=== PATIENT | male | born 1955 | race Caucasian/White ===

== ENCOUNTER → 2018-06-06 | Outpatient (CLI) | payer BC ==
--- NOTE | 2018-06-06 10:54 | EST ---
EXERCISE STRESS DATE OF SERVICE: 06/06/2018 AGE: 62 SEX: Male HT: 5'9" WT: 208 pounds PROTOCOL: CARDIOLITE OLGA STAGE: III DURATION OF EXERCISE: 8 minutes HEART RATE REST: 91 BLOOD PRESSURE REST: 147/103 MAXIMUM HEART RATE ACHIEVED: 139 MAXIMUM BLOOD PRESSURE: 178/91 85% MPHR: 136 100% MPHR: 160 METS: 9 INDICATIONS: Hypertension. CLINICAL INFORMATION: Baseline EKG shows sinus rhythm with right bundle branch block. Patient exercised on Olga protocol for a total of 8 minutes achieving 9 METs, 87% of predicted maximal heart rate without chest pain or diagnostic ST-segment depression. CONCLUSIONS: 1. Good exercise tolerance. 2. Negative stress test by EKG criteria. 3. Cardiolite portion of the stress test will be reported separately. MMODL / IJN: [id number] /
--- NOTE | 2018-06-06 11:52 | NM ---
EXAMINATION TYPE: NM stress cardiolite complete DATE OF EXAM: 06/06/2018 COMPARISON: NONE HISTORY: Precordial chest pain and abnormal EKG. TECHNIQUE: After the intravenous administration of 10.08 mCi Tc 99m Sestamibi - Rest images obtained 45 minutes post injection. The patient exercised using a OLGA protocol and 1 minute prior to peak exercise was injected with 23.7 mCi Tc 99m Sestamibi - Stress images obtained 15 minutes post inject ion. FINDINGS: Targeted heart rate was achieved during performance of the study. Review of stress and rest SPECT brie ges demonstrates no distinct perfusion abnormality. Gated analysis shows normal wall motion with an estimated left ventricular ejection fraction of 47 %. IMPRESSION: No scintigraphic evidence for reversible ischemia
== END | disposition home or self-care (01) ==
LOC: RADNMMAIN 07:56
PROVIDERS: ATTEND Family Medicine
DX: I51.7 Cardiomegaly (principal); I10 Essential (primary) hypertension
CPT/HCPCS: 93017; 78452; A9500

== ENCOUNTER 2018-06-25 09:38 | Observation (INO) | payer BC ==
[2018-06-25] MEDS ORDERED: PANTOPRAZOLE 40 MG/10 ML VIAL IVP STA (10:06)
[2018-06-25] MEDS ORDERED: SODIUM CHLORIDE 0.9% 1,000 ML IV STA (10:06)
--- NOTE | 2018-06-25 10:12 | ED ---
General Adult HPI - General Chief complaint: GI Bleed Stated complaint: GI bleed Time Seen by Provider: 06/25/18 09:58 Source: patient, RN notes reviewed Mode of arrival: ambulatory Limitations: no limitations - History of Present Illness Initial comments: Patient is a pleasant 62-year-old male presenting to the emergency department with concerns for gastrointestinal bleeding. Patient states he had an episode of emesis around 3 in the morning. Patient states this was less than 1 cup of bright red blood. Following this this morning patient has had now 4 episodes of black tarry stool that has been running. Patient has a mild unsettled feeling of his stomach. No pain. No fevers. No history of similar symptoms previously. Patient is not on any blood thinners. - Related Data Home Medications Medication Instructions Recorded Confirmed Losartan/Hydrochlorothiazide 1 each PO DAILY 06/25/18 06/25/18 [Losartan-Hctz 100-25 mg Tab] Naproxen Sodium [Aleve] 440 mg PO Q12HR PRN 06/25/18 06/25/18 amLODIPine [Norvasc] 5 mg PO DAILY 06/25/18 06/25/18 Allergies Allergy/AdvReac Type Severity Reaction Status Date / Time No Known Allergies Allergy Verified 06/25/18 10:28 Review of Systems ROS Statement: Those systems with pertinent positive or pertinent negative responses have been documented in the HPI. ROS Other: All systems not noted in ROS Statement are negative. Constitutional: Denies: fever Eyes: Denies: eye pain ENT: Denies: ear pain Respiratory: Denies: cough Cardiovascular: Denies: chest pain Endocrine: Denies: fatigue Gastrointestinal: Reports: hematemesis, melena Genitourinary: Denies: dysuria Musculoskeletal: Denies: back pain Skin: Denies: rash Neurological: Denies: weakness Past Medical History Past Medical History: GERD/Reflux, Hypertension Additional Past Medical History / Comment(s): leukemia History of Any Multi-Drug Resistant Organisms: None Reported Past Surgical History: Appendectomy Past Psychological History: No Psychological Hx Reported Smoking Status: Never smoker Past Alcohol Use History: None Reported Past Drug Use History: None Reported General Exam Limitations: no limitations General appearance: alert, in no apparent distress Head exam: Present: atraumatic Eye exam: Present: normal appearance, PERRL ENT exam: Present: normal oropharynx Neck exam: Present: normal inspection Respiratory exam: Present: normal lung sounds bilaterally Cardiovascular Exam: Present: normal rhythm, tachycardia Expanded Peripheral pulses: 2+: Dorsalis Pedis (R), Dorsalis Pedis (L) GI/Abdominal exam: Present: soft, normal bowel sounds. Absent: distended, tenderness, guarding, rebound, rigid, pulsatile mass Rectal exam: Present: black stool Extremities exam: Present: normal inspection. Absent: pedal edema, calf tenderness Neurological exam: Present: alert Psychiatric exam: Present: normal affect, normal mood Skin exam: Present: normal color Course Vital Signs 06/25/18 06/25/18 06/25/18 09:42 10:01 11:47 Temperature 98.0 F 97.9 F Pulse Rate 104 H 104 H 81 Respiratory 18 18 Rate Blood Pressure 145/88 102/78 107/85 O2 Sat by Pulse 96 96 95 Oximetry EKG Findings - EKG Comments: EKG Findings:: Sinus tachycardia 104. WA 172. QRS 140. QT 388. QTC 510. Left axis. Right bundle-branch block. LVH criteria. No acute ST change. Medical Decision Making - Medical Decision Making Patient reevaluated and updated. Case discussed in detail with Dr. Malin, who will admit his patient. He would like computed tomography scan done secondary to elevation of white blood cell count and consult with gastroenterology. - Lab Data Result diagrams: 06/25/18 10:00 06/25/18 10:00 Lab Results 06/25/18 06/25/18 06/25/18 Range/Units 10:00 10:00 10:00 WBC 15.2 H (3.8-10.6) k/uL RBC 5.19 (4.30-5.90) m/uL Hgb 14.7 (13.0-17.5) gm/dL Hct 44.9 (39.0-53.0) % MCV 86.4 (80.0-100.0) fL MCH 28.4 (25.0-35.0) pg MCHC 32.8 (31.0-37.0) g/dL RDW 13.5 (11.5-15.5) % Plt Count 230 (150-450) k/uL Neutrophils % (Manual) 61 % Lymphocytes % (Manual) 35 % Monocytes % (Manual) 4 % Neutrophils # (Manual) 9.27 H (1.3-7.7) k/uL Lymphocytes # (Manual) 5.32 H (1.0-4.8) k/uL Monocytes # (Manual) 0.61 (0-1.0) k/uL Nucleated RBCs 0 (0-0) /100 WBC RBC Morphology Normal PT 10.7 (9.0-12.0) sec INR 1.1 (<1.2) APTT 24.8 (22.0-30.0) sec Sodium 139 (137-145) mmol/L Potassium 4.1 (3.5-5.1) mmol/L Chloride 104 (98-107) mmol/L Carbon Dioxide 26 (22-30) mmol/L Anion Gap 9 mmol/L BUN 40 H (9-20) mg/dL Creatinine 1.01 (0.66-1.25) mg/dL Est GFR (CKD-EPI)AfAm >90 (>60 ml/min/1.73 sqM) Est GFR (CKD-EPI)NonAf 81 (>60 ml/min/1.73 sqM) Glucose 114 H (74-99) mg/dL Calcium 9.1 (8.4-10.2) mg/dL Total Bilirubin 1.6 H (0.2-1.3) mg/dL AST 26 (17-59) U/L ALT 36 (21-72) U/L Alkaline Phosphatase 70 (38-126) U/L Total Protein 6.7 (6.3-8.2) g/dL Albumin 4.0 (3.5-5.0) g/dL Stool Occult Blood (Negative) 06/25/18 Range/Units 10:00 WBC (3.8-10.6) k/uL RBC (4.30-5.90) m/uL Hgb (13.0-17.5) gm/dL Hct (39.0-53.0) % MCV (80.0-100.0) fL MCH (25.0-35.0) pg MCHC (31.0-37.0) g/dL RDW (11.5-15.5) % Plt Count (150-450) k/uL Neutrophils % (Manual) % Lymphocytes % (Manual) % Monocytes % (Manual) % Neutrophils # (Manual) (1.3-7.7) k/uL Lymphocytes # (Manual) (1.0-4.8) k/uL Monocytes # (Manual) (0-1.0) k/uL Nucleated RBCs (0-0) /100 WBC RBC Morphology PT (9.0-12.0) sec INR (<1.2) APTT (22.0-30.0) sec Sodium (137-145) mmol/L Potassium (3.5-5.1) mmol/L Chloride (98-107) mmol/L Carbon Dioxide (22-30) mmol/L Anion Gap mmol/L BUN (9-20) mg/dL Creatinine (0.66-1.25) mg/dL Est GFR (CKD-EPI)AfAm (>60 ml/min/1.73 sqM) Est GFR (CKD-EPI)NonAf (>60 ml/min/1.73 sqM) Glucose (74-99) mg/dL Calcium (8.4-10.2) mg/dL Total Bilirubin (0.2-1.3) mg/dL AST (17-59) U/L ALT (21-72) U/L Alkaline Phosphatase (38-126) U/L Total Protein (6.3-8.2) g/dL Albumin (3.5-5.0) g/dL Stool Occult Blood Positive (Negative) Disposition Clinical Impression: Gastrointestinal hemorrhage Disposition: ADMITTED IP TO THIS HOSP Is patient prescribed a controlled substance at d/c from ED?: No If Rx opioid, was Start Talking consent form obtained?: No Referrals: Kamaljit Malin MD [Primary Care Provider] - 1-2 days Decision Time: 12:45
[2018-06-25 10:26] LABS: HCT 44.9 % (39.0-53.0); HGB 14.7 gm/dL (13.0-17.5); MCH 28.4 pg (25.0-35.0); MCHC 32.8 g/dL (31.0-37.0); MCV 86.4 fL (80.0-100.0); Mean Platelet Volume 6.7; Platelet Count 230 k/uL (150-450); RBC 5.19 m/uL (4.30-5.90); RDW 13.5 % (11.5-15.5); WBC 15.2 k/uL (3.8-10.6)
[2018-06-25 10:30] LABS: INR 1.1 (<1.2); Partial Thromboplastin Time 24.8 sec (22.0-30.0); Prothrombin Time 10.7 sec (9.0-12.0)
[2018-06-25 10:32] LABS: ALT 36 U/L (21-72); AST 26 U/L (17-59); Alkaline Phosphatase 70 U/L (38-126); Anion Gap 9 mmol/L; Blood Urea Nitrogen 40 mg/dL (9-20); Calcium 9.1 mg/dL (8.4-10.2); Carbon Dioxide 26 mmol/L (22-30); Chloride 104 mmol/L (98-107); Glucose 114 mg/dL (74-99); Potassium 4.1 mmol/L (3.5-5.1); Sodium 139 mmol/L (137-145); Total Bilirubin 1.6 mg/dL (0.2-1.3); Total Protein 6.7 g/dL (6.3-8.2)
[2018-06-25 11:15] LABS: Lymphocytes # (M) 5.32 k/uL (1.0-4.8); Neutrophils # (M) 9.27 k/uL (1.3-7.7); Neutrophils % (M) 61 %
[2018-06-25 11:16] LABS: Monocytes # (M) 0.61 k/uL (0-1.0); Nucleated Red Blood Cells 0 /100 WBC (0-0); Total Cells Counted 100
[2018-06-25] MEDS ORDERED: NALOXONE 0.4 MG/ML 1 ML VIAL IV PRN (12:51)
[2018-06-25] MEDS ORDERED: ACETAMINOPHEN IV (For NPO) 1,000 MG in EMPTY BAG 1 BAG IVPB PRN (13:12)
[2018-06-25] MEDS ORDERED: ONDANSETRON 4 MG/2 ML VIAL IVP PRN (13:12)
--- NOTE | 2018-06-25 14:34 | CT ---
EXAMINATION TYPE: CT abdomen pelvis w con DATE OF EXAM: 06/25/2018 COMPARISON: None HISTORY: Coughing up blood, tarry stools CT DLP: 1824 mGycm Automated exposure control for dose reduction was used. CONTRAST: CT scan of the abdomen pelvis is performed with IV Contrast, patient injected with 100 mL of Isovue 3 00. FINDINGS- LUNG BASES-cardiomegaly with no focal area of consolidation. Motion artifact limits assessment LIVER/GB- No gross abnormality is appreciated. PANCREAS- No gross abnormality is seen. SPLEEN- No gross abnormality is seen. ADRENALS- No gross abnormality is seen. KIDNEYS/BLADDER- no hydronephrosis or nephrolithiasis. Tiny hypodensity within the right kidney is to o small. BOWEL-bowel gas pattern nonspecific. There is a small hiatal hernia. No diagnostic evidence of obstru ction. Colon is decompressed and limited in assessment for mucosal lesion. No evidence of obstruction . No definite surrounding inflammatory changes.. LYMPH NODES- No greater than 1cm abdominal or pelvic lymph nodes areappreciated. OSSEOUS STRUCTURES-hypertrophic change of the spine are seen with facet arthropathy at L4-5 and L5-S1 . Grade 1 anterolisthesis L4 on L5. Sclerosis involving the symphysis.. OTHER- atherosclerotic change of the aorta with no evidence of aneurysm. No free fluid or free air. Disc bulging at L4-L5 appears resulting canal stenosis. Fat-containing bilateral inguinal hernias. IMPRESSION- 1. Small hiatal hernia with mild esophageal wall thickening correlate for esophagitis. 2. Limited assessment: Due to decompression. No obvious inflammatory changes. Questionable eccentric wall thickening along posterior right lateral margin the rectosigmoid junction may be related to inco mplete distention rather than true wall thickening. No inflammatory changes. Correlate with direct vi sualization as clinically warranted
[2018-06-25] MEDS: SODIUM CHLORIDE 0.9% 1,000 ML IV SCH ×2 (17:38→21:00)
[2018-06-25 19:12] LABS: HCT 41.4 % (39.0-53.0); HGB 13.9 gm/dL (13.0-17.5); MCH 28.8 pg (25.0-35.0); MCHC 33.6 g/dL (31.0-37.0); MCV 85.7 fL (80.0-100.0); Mean Platelet Volume 6.8; Platelet Count 212 k/uL (150-450); RBC 4.84 m/uL (4.30-5.90); RDW 13.5 % (11.5-15.5); WBC 12.4 k/uL (3.8-10.6)
[2018-06-25] MEDS: PANTOPRAZOLE 40 MG/10 ML VIAL IVP SCH (21:01)
[2018-06-26 01:01] LABS: Basophils % (A) 0 %; Eosinophils # (A) 0.2 k/uL (0-0.7); Eosinophils % (A) 2 %; HCT 39.1 % (39.0-53.0); HGB 13.2 gm/dL (13.0-17.5); Lymphocytes % (A) 45 %; MCH 29.2 pg (25.0-35.0); MCHC 33.7 g/dL (31.0-37.0); MCV 86.5 fL (80.0-100.0); Mean Platelet Volume 7.4; Monocytes # (A) 0.5 k/uL (0-1.0); Monocytes % (A) 4 %; Neutrophils % (A) 46 %; Platelet Count 200 k/uL (150-450); RBC 4.52 m/uL (4.30-5.90); RDW 13.6 % (11.5-15.5); WBC 10.9 k/uL (3.8-10.6)
[2018-06-26 01:02] LABS: Lymphocytes # (A) 4.9 k/uL (1.0-4.8)
[2018-06-26] MEDS: SODIUM CHLORIDE 0.9% 1,000 ML IV SCH ×3 (05:17→20:16)
[2018-06-26 07:58] LABS: Basophils % (A) 0 %; Eosinophils # (A) 0.2 k/uL (0-0.7); Eosinophils % (A) 2 %; HCT 39.7 % (39.0-53.0); HGB 13.3 gm/dL (13.0-17.5); Lymphocytes # (A) 4.7 k/uL (1.0-4.8); Lymphocytes % (A) 46 %; MCH 29.3 pg (25.0-35.0); MCHC 33.6 g/dL (31.0-37.0); MCV 87.2 fL (80.0-100.0); Mean Platelet Volume 6.7; Monocytes # (A) 0.5 k/uL (0-1.0); Monocytes % (A) 4 %; Neutrophils # (A) 4.8 k/uL (1.3-7.7); Neutrophils % (A) 46 %; Platelet Count 203 k/uL (150-450); RBC 4.55 m/uL (4.30-5.90); RDW 13.7 % (11.5-15.5); WBC 10.4 k/uL (3.8-10.6)
--- NOTE | 2018-06-26 08:42 | P.CONS ---
<Becka Gardner - Last Filed: 06/26/18 08:35> History of Present Illness - Reason for Consult Consult date: 06/26/18 Gi Bleed hematemesis Requesting physician: Kamaljit Malin - History of Present Illness 62-year-old gentleman with a history of GERD hypertension presents with acute hematemesis and melena. Early yesterday morning he was awakened with 2 red- colored emesis followed by several black colored bowel movements. Mild epigastric discomfort reflux type symptoms. No history GI bleed. He takes Aleve on a daily basis for the last 2 months for musculoskeletal discomfort. Does not take maintenance medications for GERD. Occasional [id number] Rolaids. Sometimes he takes one tablet a day sometimes 2 tablets daily. No history of EGD, peptic ulcer disease, or GI bleed. Colonoscopy several years ago to his memory was normal. No aspirin or other antiplatelet medications. No alcohol. Denies chest pain or shortness of breath. Afebrile. Admission hemoglobin 14.7 presently 13.3. White count 15.2 presently 10.4. INR 1.1. Platelet 230. BUN 40. Creatinine 1.0. Stool occult blood positive. CT abdomen and pelvis small hiatal hernia mild esophageal wall thickening correlate for esophagitis. Additionally patient reports over the last few months she's had increased dysphagia with thicker foods being stuck in the mid to lower esophagus however does not report emesis or weight loss with it. Sensation of food being stuck usually passes with water/liquids. Review of Systems Constitutional: Denies fever, chills, sweats, weight gain, or loss. HEENT: Negative for migraines, blurred vision or loss, earaches, drainage, tinnitus, oral mucosal lesions, dysphagia, or odynophagia. Cardiac: Negative for chest pain, arrhythmias, or palpitation. Respiratory: Negative for shortness of breath, hemoptysis, cough, or sputum production. Gastrointestinal: See HPI for pertinent findings. Genitourinary: Negative for hematuria, urgency, frequency, polyuria, dysuria, or penile discharge. Musculoskeletal: Negative for muscle aches, swelling, arthritis, and arthralgias. Neurologic: Negative for stroke or TIA. Endocrine: Negative for thyroid problems. Skin: Negative for rash or itching. Psychiatric: Negative history for depression and anxiety Past Medical History Past Medical History: GERD/Reflux, Hypertension Additional Past Medical History / Comment(s): CLL diagnosed in 2009-being followed by Dr. Jeffery with blood work every 6 months, past bilateral ankle fractures-healed with casting. History of Any Multi-Drug Resistant Organisms: None Reported Past Surgical History: Appendectomy Additional Past Surgical History / Comment(s): Colonoscopy/normal. Past Anesthesia/Blood Transfusion Reactions: No Reported Reaction Smoking Status: Never smoker - Past Family History Father Family Medical History: Diabetes Mellitus, Myocardial Infarction ([place]) Additional Family Medical History / Comment(s): Father at the ageof 77yrs from [place]/diabetes. Mother Family Medical History: No Reported History Additional Family Medical History / Comment(s): Mother is healthy and is 82 yrs old. Medications and Allergies Home Medications Medication Instructions Recorded Confirmed Type Losartan/Hydrochlorothiazide 1 each PO DAILY 06/25/18 06/25/18 History [Losartan-Hctz 100-25 mg Tab] amLODIPine [Norvasc] 5 mg PO DAILY 06/25/18 06/25/18 History Pantoprazole [Protonix] 40 mg PO BID #60 tab 06/27/18 Rx Allergies Allergy/AdvReac Type Severity Reaction Status Date / Time No Known Allergies Allergy Verified 06/25/18 10:28 Physical Exam Vitals: Vital Signs Temp Pulse Pulse Resp BP BP Pulse Ox 06/26/18 06:35 96.0 F L 93 14 111/75 97 06/25/18 23:00 96.4 F L 61 14 116/76 96 06/25/18 14:27 98.1 F 86 16 117/85 95 06/25/18 13:34 98.0 F 88 16 117/76 96 06/25/18 11:47 97.9 F 81 18 107/85 95 06/25/18 10:01 104 H 18 102/78 96 06/25/18 09:42 98.0 F 104 H 18 145/88 96 Intake and Output 06/25/18 06/26/18 06/26/18 22:59 06:59 14:59 Other: # Voids 1 1 Weight 95.254 kg General appearance: The patient is alert, oriented, in no acute distress. HET: Head is normocephalic and atraumatic. Pupils are equal and reactive. Oropharynx is clear without lesions. Neck: Supple without lymphadenopathy. Trachea midline. Heart: S1 S2. Regular rate and rhythm. Lungs: No crackles or wheezes are heard. Abdomen: Soft, mild midepigastric tenderness, nondistended with bowel sounds. No peritoneal signs. No palpable organomegaly or masses. Extremities: Normal skin color and turgor. No cyanosis, rash, ulceration, clubbing, or edema. Radial and pedal pulses are 2/4 bilaterally. Neurological: No focal deficits. Strength and sensation are grossly intact. Results CBC & Chem 7: 06/26/18 07:32 06/25/18 10:00 Labs: Abnormal Lab Results - Last 24 Hours (Table) 06/25/18 06/25/18 06/25/18 Range/Units 10:00 10:00 19:00 WBC 15.2 H 12.4 H (3.8-10.6) k/uL Neutrophils # (Manual) 9.27 H (1.3-7.7) k/uL Lymphocytes # (1.0-4.8) k/uL Lymphocytes # (Manual) 5.32 H (1.0-4.8) k/uL BUN 40 H (9-20) mg/dL Glucose 114 H (74-99) mg/dL Total Bilirubin 1.6 H (0.2-1.3) mg/dL 06/26/18 Range/Units 00:51 WBC 10.9 H (3.8-10.6) k/uL Neutrophils # (Manual) (1.3-7.7) k/uL Lymphocytes # 4.9 H (1.0-4.8) k/uL Lymphocytes # (Manual) (1.0-4.8) k/uL BUN (9-20) mg/dL Glucose (74-99) mg/dL Total Bilirubin (0.2-1.3) mg/dL CT scan - abdomen: report reviewed (Dr. Perez) Assessment and Plan (1) Hematemesis Narrative/Plan: Possible peptic ulcer disease NSAID-induced Status: Acute Code(s): K92.0 - HEMATEMESIS SNOMED Code(s): 0297163 (2) Melena Status: Acute Code(s): K92.1 - MELENA SNOMED Code(s): 3939859 (3) Patient takes NSAID (non-steroid anti-inflammatory drug) Status: Acute Code(s): Z79.1 - USP (CURRENT) USE OF NON-STEROIDAL NON- INFLAM (NSAID) SNOMED Code(s): 893557707 (4) Gastrointestinal hemorrhage Status: Acute Code(s): K92.2 - GASTROINTESTINAL HEMORRHAGE, UNSPECIFIED SNOMED Code(s): 99990264 (5) GERD (gastroesophageal reflux disease) Status: Acute Code(s): K21.9 - GASTRO-ESOPHAGEAL REFLUX DISEASE WITHOUT ESOPHAGITIS SNOMED Code(s): 317407210 (6) Dysphagia Narrative/Plan: Underlying esophageal stricture disease cannot be excluded Status: Acute Code(s): R13.10 - DYSPHAGIA, UNSPECIFIED SNOMED Code(s): 36028036 <Bubba Perez - Last Filed: 07/05/18 10:11> Results CBC & Chem 7: 06/27/18 07:10 06/27/18 07:10 Assessment and Plan Plan: The patient has been seen and evaluated, and the plan of care discussed. I agree with the above recommendations and assessment and plan.
[2018-06-26] MEDS: PANTOPRAZOLE 40 MG/10 ML VIAL IVP SCH ×2 (08:53→20:15)
[2018-06-26] MEDS ORDERED: PANTOPRAZOLE 40 MG/10 ML VIAL IV SCH (09:00)
[2018-06-26 09:29] LABS: ALT 32 U/L (21-72); AST 24 U/L (17-59); Albumin 3.2 g/dL (3.5-5.0); Alkaline Phosphatase 59 U/L (38-126); Anion Gap 5 mmol/L; Blood Urea Nitrogen 27 mg/dL (9-20); Calcium 8.6 mg/dL (8.4-10.2); Carbon Dioxide 28 mmol/L (22-30); Chloride 107 mmol/L (98-107); Glucose 95 mg/dL (74-99); Sodium 140 mmol/L (137-145); Total Bilirubin 1.6 mg/dL (0.2-1.3); Total Protein 5.7 g/dL (6.3-8.2)
--- NOTE | 2018-06-26 10:48 | P.HPIM ---
History of Present Illness H&P Date: 06/26/18 Chief Complaint: hematemesis 62-year-old male who presented to the emergency room with a chief complaint of hematemesis. He reports he had two episodes of hematemesis yesterday followed by a multiple episodes of black, tarry stools. The patient reports a history of gastroesophageal reflux disease. He states the majority of the time his reflux is well controlled and is worsened by acidic foods such as tomatoes. He reports not eating these types of food late in the day has helped his symptoms. He reports he takes Rolaids PRN. The patient reports daily NSAID use with Aleve due to generalized aches and pains. 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 He denies having EGD in the past. He does report a colonoscopy in the past which he reports was normal. The patient also has a history of hypertension. He takes Norvasc and Losartan/HCTZ. The patient reports he was sent for a stress test due to some EKG changes found during an office visit. Stress test was completed 06/06/2018 and was negative. The patient states he does see Dr. Archer every 6 months. He also has a history of CLL in [address] Jeffery every 6 months. He is a non-smoker. He denies alcohol use. Denies illicit drug use. CT abdomen/pelvis revealed a small hiatal hernia with mild esophageal wall thickening: correlate for esophagitis. Laboratory data on admission reveals white count 15.2. Hemoglobin 14.7. Platelet count 230. Sodium 139. Potassium 4.1. BUN 40. Creatinine 1.01. Glucose 114. Total bilirubin 1.6. AST 26. ALT 36. Alkaline phosphatase 70. Stool for occult blood was positive. The patient was admitted to the hospital under the care of Dr. Malin. Consultations were placed to GI. Review of Systems Those systems with pertinent positive or pertinent negative responses have been documented in the HPI Past Medical History Past Medical History: GERD/Reflux, Hypertension Additional Past Medical History / Comment(s): CLL diagnosed in 2009-being followed by Dr. Jeffery with blood work every 6 months, past bilateral ankle fractures-healed with casting. History of Any Multi-Drug Resistant Organisms: None Reported Past Surgical History: Appendectomy Additional Past Surgical History / Comment(s): Colonoscopy/normal. Past Anesthesia/Blood Transfusion Reactions: No Reported Reaction Smoking Status: Never smoker - Past Family History Father Family Medical History: Diabetes Mellitus, Myocardial Infarction ([place]) Additional Family Medical History / Comment(s): Father at the ageof 77yrs from [place]/diabetes. Mother Family Medical History: No Reported History Additional Family Medical History / Comment(s): Mother is healthy and is 82 yrs old. Medications and Allergies Home Medications Medication Instructions Recorded Confirmed Type Losartan/Hydrochlorothiazide 1 each PO DAILY 06/25/18 06/25/18 History [Losartan-Hctz 100-25 mg Tab] Naproxen Sodium [Aleve] 440 mg PO Q12HR PRN 06/25/18 06/25/18 History amLODIPine [Norvasc] 5 mg PO DAILY 06/25/18 06/25/18 History Allergies Allergy/AdvReac Type Severity Reaction Status Date / Time No Known Allergies Allergy Verified 06/25/18 10:28 Physical Exam Vitals: Vital Signs Temp Pulse Pulse Resp BP BP Pulse Ox 06/26/18 06:35 96.0 F L 93 14 111/75 97 06/25/18 23:00 96.4 F L 61 14 116/76 96 06/25/18 14:27 98.1 F 86 16 117/85 95 06/25/18 13:34 98.0 F 88 16 117/76 96 06/25/18 11:47 97.9 F 81 18 107/85 95 Intake and Output 06/25/18 06/26/18 06/26/18 22:59 06:59 14:59 Other: # Voids 1 1 Weight 95.254 kg GENERAL: This is a 62-year-old male in no apparent distress at the time of examination. Pleasant and cooperative. HEENT: Head is atraumatic, normocephalic. Pupils are equal, round, and reactive to light. Sclerae anicteric. Conjunctivae are clear. Mucus membranes of the mouth are moist. Neck is supple. RESPIRATORY: Clear to ausculation. No wheezes, rales, or rhonchi. No use of accessory muscles. Patient maintaining oxygen saturation greater than 92%. No chest wall tenderness is noted on palpation or with deep breathing. CARDIOVASCULAR: Regular rate and rhythm. S1 and S2 noted. No systolic or diastolic murmur auscultated. No JVD noted. No S3 or S4 noted. GASTROINTESTINAL: No distention noted. Abdomen soft and round. Normal active bowel sounds auscultated x 4 quadrants. No pain or tenderness noted upon palpation. INTEGUMENTARY: No cyanosis. No jaundice. No rashes noted. No cellulitis noted. EXTREMITIES: 2+ peripheral pulses. No evidence of peripheral edema. No calf tenderness noted. NEUROLOGIC: Cranial nerves II-XII intact. PSYCHIATRIC: Awake, alert, and oriented X 3. Appropriate affect. Intact judgement and insight. Results CBC & Chem 7: 06/26/18 07:32 06/26/18 07:32 Labs: Abnormal Lab Results - Last 24 Hours (Table) 06/25/18 06/25/18 06/25/18 Range/Units 10:00 10:00 19:00 WBC 15.2 H 12.4 H (3.8-10.6) k/uL Neutrophils # (Manual) 9.27 H (1.3-7.7) k/uL Lymphocytes # (1.0-4.8) k/uL Lymphocytes # (Manual) 5.32 H (1.0-4.8) k/uL BUN 40 H (9-20) mg/dL Glucose 114 H (74-99) mg/dL Total Bilirubin 1.6 H (0.2-1.3) mg/dL Total Protein (6.3-8.2) g/dL Albumin (3.5-5.0) g/dL 06/26/18 06/26/18 Range/Units 00:51 07:32 WBC 10.9 H (3.8-10.6) k/uL Neutrophils # (Manual) (1.3-7.7) k/uL Lymphocytes # 4.9 H (1.0-4.8) k/uL Lymphocytes # (Manual) (1.0-4.8) k/uL BUN 27 H (9-20) mg/dL Glucose (74-99) mg/dL Total Bilirubin 1.6 H (0.2-1.3) mg/dL Total Protein 5.7 L (6.3-8.2) g/dL Albumin 3.2 L (3.5-5.0) g/dL Thrombosis Risk Factor Assmnt - Choose All That Apply Any of the Below Risk Factors Present?: Yes Each Factor Represents 1 point: Age 41-60 years, Obesity (BMI >25) Other Risk Factors: Yes Each Risk Factor Represents 2 Points: Malignancy Other congenital or acquired thrombophilia - If yes, enter type in comment: No Thrombosis Risk Factor Assessment Total Risk Factor Score: 4 Thrombosis Risk Factor Assessment Level: Moderate Risk Assessment and Plan Plan: ASSESSMENT: GI Bleed, present on admission, may be secondary to daily NSAID use Hematemesis and melena, present on admission Gastroesophageal reflux disease Hypertension History of CLL PLAN: GI on consult. Patient to undergo EGD today NPO until after procedure Hold home medications at this time Monitor labs GI prophylaxis: Protonix 40 mg IV BID DVT prophylaxis: SCDs to bilateral LE Monitor vital signs and address as appropriate Discharge planning: Patient to return home when stable Further recommendations pending patient's course Nurse practitioner note has been reviewed by physician. Signing provider agrees with the documented findings, assessment, and plan of care.
[2018-06-26 12:09] LABS: Basophils % (A) 0 %; Eosinophils # (A) 0.2 k/uL (0-0.7); Eosinophils % (A) 2 %; HCT 39.8 % (39.0-53.0); HGB 13.1 gm/dL (13.0-17.5); Lymphocytes # (A) 4.7 k/uL (1.0-4.8); Lymphocytes % (A) 46 %; MCH 28.7 pg (25.0-35.0); Mean Platelet Volume 6.6; Monocytes # (A) 0.4 k/uL (0-1.0); Monocytes % (A) 4 %; Neutrophils # (A) 4.8 k/uL (1.3-7.7); Neutrophils % (A) 46 %; Platelet Count 199 k/uL (150-450); RBC 4.57 m/uL (4.30-5.90); RDW 13.6 % (11.5-15.5); WBC 10.4 k/uL (3.8-10.6)
[2018-06-26] MEDS ORDERED: PROPOFOL 10 MG/ML 20 ML VIAL IV ONE (12:33)
[2018-06-26] MEDS ORDERED: IV FLUID CONTINUATION 400 ML IV ONE (12:34)
--- NOTE | 2018-06-26 18:54 | P.PCN ---
Date of Procedure: 06/26/18 Description of Procedure: BRIEF HISTORY: Patient is a 62-year-old, pleasant, male who presented to the hospital with complaints of hematemesis. The patient has no prior history of peptic ulcer disease however does don't risk factors including the recent use of NSAID medications. PROCEDURE PERFORMED: Esophagogastroduodenoscopy. PREOPERATIVE DIAGNOSIS: Hematemesis. IV sedation per anesthesia. PROCEDURE: After informed consent was obtained, the patient was brought into the endoscopy unit. IV sedation was administered by Anesthesia under continuous monitoring. Initially the Olympus GIF-190 video endoscope was inserted into the mouth. Esophagus intubated without any difficulty. It was gradually advanced into the stomach and duodenum and carefully examined. The bulb and the second part of the duodenum appeared normal. The scope at this time was withdrawn to the stomach, adequately insufflated with air, and upon careful examination, mucosa of the antrum, body, cardia and the fundus appeared grossly normal however areas of scattered gastritis were noted in the body and antrum and biopsies were taken to rule out Helicobacter pylori. The patient also had a small polyp in the body of the stomach which was biopsied. The scope was then withdrawn into the esophagus. The GE junction was located at 35 cm from the incisors. The esophagus appeared normal in the proximal and mid regions however the distal esophagus with marked by a large nonbleeding ulcer with no evidence of high risk stigmata of bleeding. Biopsies were taken from the ulcer. IMPRESSION: 1. Distal esophageal ulcer with no evidence of active GI bleeding status post biopsy. 2. Scattered mild gastritis of the antrum and body which was biopsied for histology. 3. Small polyp in the body of the stomach which was biopsied. 4. Normal duodenum RECOMMENDATIONS: The findings of this examination were discussed with the patient . 1. Protonix 40 mg twice a day. 2. Repeat endoscopy in 6-8 weeks to ensure healing of the esophageal ulcer. 3. Full liquid diet today, okay to advance to a GI soft diet tomorrow. 4. Continue to monitor hemoglobin and hematocrit. 5. Await pathology from biopsies. 6. Follow up with the gastroenterology service in the next 1-2 weeks. 7. Avoid use of all NSAIDs.
[2018-06-27] MEDS: SODIUM CHLORIDE 0.9% 1,000 ML IV SCH (05:00)
[2018-06-27 07:20] VITALS: BP 134/88; PULSE 87; RESP 16; TEMP 97.9
[2018-06-27 07:46] LABS: Basophils % (A) 0 %; Eosinophils # (A) 0.2 k/uL (0-0.7); Eosinophils % (A) 2 %; HCT 37.7 % (39.0-53.0); HGB 12.5 gm/dL (13.0-17.5); Lymphocytes # (A) 4.2 k/uL (1.0-4.8); Lymphocytes % (A) 44 %; MCH 28.9 pg (25.0-35.0); MCHC 33.3 g/dL (31.0-37.0); MCV 86.7 fL (80.0-100.0); Mean Platelet Volume 6.9; Monocytes # (A) 0.4 k/uL (0-1.0); Monocytes % (A) 4 %; Neutrophils # (A) 4.5 k/uL (1.3-7.7); Neutrophils % (A) 48 %; Platelet Count 185 k/uL (150-450); RBC 4.34 m/uL (4.30-5.90); RDW 13.7 % (11.5-15.5); WBC 9.5 k/uL (3.8-10.6)
[2018-06-27] MEDS: PANTOPRAZOLE 40 MG/10 ML VIAL IVP SCH (07:59)
[2018-06-27 08:05] LABS: ALT 31 U/L (21-72); AST 20 U/L (17-59); Albumin 3.2 g/dL (3.5-5.0); Alkaline Phosphatase 59 U/L (38-126); Anion Gap 4 mmol/L; Blood Urea Nitrogen 17 mg/dL (9-20); Calcium 8.7 mg/dL (8.4-10.2); Carbon Dioxide 27 mmol/L (22-30); Chloride 109 mmol/L (98-107); Glucose 93 mg/dL (74-99); Sodium 140 mmol/L (137-145); Total Bilirubin 1.3 mg/dL (0.2-1.3); Total Protein 5.6 g/dL (6.3-8.2)
[2018-06-27] MEDS ORDERED: LOSARTAN-HCTZ 50-12.5 MG 1 EACH TAB PO SCH (09:00)
[2018-06-27] MEDS ORDERED: amLODIPine 5 MG TAB PO SCH (09:00)
--- NOTE | 2018-06-27 10:15 | P.DS ---
Providers Date of admission: 06/25/18 12:51 Expected date of discharge: 06/27/18 Attending physician: Kamaljit Malin Consults: 06/25/18 12:51 Consult Physician Urgent Consulting Provider: Santo Henderson Consult Reason/Comments: gi hemorrhage Do you want consulting provider notified?: Yes Primary care physician: Kamaljit [facility] Course: 62-year-old male who presented to the emergency room with a chief complaint of hematemesis. He reports he had two episodes of hematemesis yesterday followed by a multiple episodes of black, tarry stools. The patient reports a history of gastroesophageal reflux disease. He states the majority of the time his reflux is well controlled and is worsened by acidic foods such as tomatoes. He reports not eating these types of food late in the day has helped his symptoms. He reports he takes Rolaids PRN. The patient reports daily NSAID use with Aleve due to generalized aches and pains. He works in a [employer] yard and works 8-10 hour shifts. He denies having EGD in the past. He does report a colonoscopy in the past which he reports was normal. The patient also has a history of hypertension. He takes Norvasc and Losartan/HCTZ. The patient reports he was sent for a stress test due to some EKG changes found during an office visit. Stress test was completed 06/06/2018 and was negative. The patient states he does see Dr. Archer every 6 months. He also has a history of CLL in [address] Jeffery every 6 months. He is a non-smoker. He denies alcohol use. Denies illicit drug use. CT abdomen/pelvis revealed a small hiatal hernia with mild esophageal wall thickening: correlate for esophagitis. Laboratory data on admission reveals white count 15.2. Hemoglobin 14.7. Platelet count 230. Sodium 139. Potassium 4.1. BUN 40. Creatinine 1.01. Glucose 114. Total bilirubin 1.6. AST 26. ALT 36. Alkaline phosphatase 70. Stool for occult blood was positive. The patient was admitted to the hospital under the care of Dr. Malin. Consultations were placed to GI. The patient underwent EGD on 06/26/[address] Perez. EGD revealed: Distal esophageal ulcer with no evidence of active GI bleeding status post biopsy. Scattered mild gastritis of the antrum and body which was biopsied for histology. Small polyp in the body of the stomach which was biopsied. Normal duodenum. The patient was started on a full liquid diet and advanced as tolerated. No further episodes of nausea or vomiting. No further bleeding noted. The patient is to follow up with Dr. Perez in 2 weeks. He will require repeat EGD in 6-8 weeks to ensure healing of ulcer. Protonix 40mg PO BID was prescribed at the time of discharge. DISCHARGE DIAGNOSIS: GI Bleed, present on admission, may be secondary to daily NSAID use S/P EGD revealing: Distal esophageal ulcer with no evidence of active GI bleeding status post biopsy.Scattered mild gastritis of the antrum and body which was biopsied for histology. Small polyp in the body of the stomach which was biopsied. Hematemesis and melena, present on admission, resolved Gastroesophageal reflux disease Hypertension History of CLL Nurse practitioner note has been reviewed by physician. Signing provider agrees with the documented findings, assessment, and plan of care. Patient Condition at Discharge: Stable Plan - Discharge Summary Discharge Rx Participant: No New Discharge Prescriptions: New Pantoprazole [Protonix] 40 mg PO BID #60 tab Continue amLODIPine [Norvasc] 5 mg PO DAILY Losartan/Hydrochlorothiazide [Losartan-Hctz 100-25 mg Tab] 1 each PO DAILY Discontinued Naproxen Sodium [Aleve] 440 mg PO Q12HR PRN PRN Reason: Pain Discharge Medication List Losartan/Hydrochlorothiazide [Losartan-Hctz 100-25 mg Tab] 1 each PO DAILY 06/25 [History] amLODIPine [Norvasc] 5 mg PO DAILY 06/25/18 [History] Pantoprazole [Protonix] 40 mg PO BID #60 tab 06/27/18 [Rx] Follow up Appointment(s)/Referral(s): Kamaljit Malin MD [Primary Care Provider] - 1 Week Bubba Perez MD [STAFF PHYSICIAN] - 2 Weeks Activity/Diet/Wound Care/Special Instructions: Do not take NSAIDS such as naproxen (Aleve) or ibuprofen (Motrin). You may take Tylenol for pain. Discharge Disposition: HOME SELF-CARE
== END 2018-06-27 11:29 | disposition home or self-care (01) ==
LOC: EC 09:38 → 4MS4W 12:51
PROVIDERS: ADMIT Family Medicine; ATTEND Family Medicine
DX: K92.2 Gastrointestinal hemorrhage, unspecified (principal); K92.1 Melena; K92.0 Hematemesis; D72.829 Elevated white blood cell count, unspecified; K22.10 Ulcer of esophagus without bleeding; K31.7 Polyp of stomach and duodenum; K29.50 Unspecified chronic gastritis without bleeding; K44.9 Diaphragmatic hernia without obstruction or gangrene; K21.0 Gastro-esophageal reflux disease with esophagitis; I10 Essential (primary) hypertension; R52 Pain, unspecified; Z85.6 Personal history of leukemia; Z83.3 Family history of diabetes mellitus; Z82.49 Family history of ischemic heart disease and other diseases of the circulatory system; Z79.899 Other long term (current) drug therapy; Z79.1 Long term (current) use of non-steroidal anti-inflammatories (NSAID); E66.9 Obesity, unspecified; Z68.31 Body mass index [BMI] 31.0-31.9, adult
CPT/HCPCS: 99285; 96374 ×2; 96361 ×7; 96376 ×2; 36415; 93005; 88305; 80053 ×3; 85025 ×3; 85027; 85610; 85730; 82272; 74177; 43239; G0378 ×3; J2704; C9113 ×3; Q9967

== ENCOUNTER → 2019-01-09 | Outpatient (CLI) | payer BC ==
--- NOTE | 2019-01-09 18:22 | PN ---
PROGRESS NOTE DATE OF SERVICE: 01/09/2019 This patient is a 63-year-old gentleman who has been followed in the sleep center for treatment of obstructive sleep apnea-hypopnea syndrome. Recently patient had a home sleep apnea test which showed extremely severe obstructive sleep apnea. Then the patient had CPAP titration, and his respiration was controlled with CPAP. Subsequently he received his CPAP unit and started to use it. He has had no problem with the usage of CPAP related to mask fitting, pressure or humidification. Today is his first visit after being started on treatment with CPAP. He feels better. He is sleeping better. He feels better during the day. [place] Sleepiness Scale is 6. I checked his CPAP unit. CPAP pressure is in the range of 7 to 13. Usage is 100% of the time for more than 4 hours, average usage 8.1 hours. Pressure is 11.8. Leak is 13 L/minute, which is borderline. Apnea-hypopnea index is only 0.9, which is totally normal. MEDICATIONS: 1. Losartan. 2. Protonix. PHYSICAL EXAMINATION: GENERAL: A pleasant patient in no distress. VITAL SIGNS: BP 148/86, HR 94, RR 16, weight 222, temperature 98.0, oxygen saturation at room air 96%. HEENT: PERRLA, EOMI. Evaluation of oropharynx showed tongue protrudes midline. Low position of soft palate. Mallampati IV. NECK: Supple. No JVD. Thyroid is not palpable. LUNGS: Clear to percussion and to auscultation. Good air exchange. No wheezing or rhonchi. HEART: S1, S2 regular. No murmurs, gallops or rubs. ABDOMEN: Obese. EXTREMITIES: No clubbing or cyanosis. GAME ARTIST: Awake, alert, and oriented X3. Cranial nerves 2 to 7 intact. There is no fasciculation or atrophy. noted. No focal deficits observed. IMPRESSION: 1. Extremely severe obstructive sleep apnea-hypopnea syndrome; apnea-hypopnea index 95.4 with oxygen saturation to 51%, under full control with CPAP. Patient demonstrated 100% compliance with treatment, benefitting from treatment. 2. Obesity. 3. Hypertension. 4. History of peptic ulcer disease. 5. Status post appendectomy. 6. History of episodes of leg cramps in the past. No recent leg cramps. PLAN: 1. Patient will continue to use CPAP equipment every night for the whole night. 2. Losing weight. 3. Sleep hygiene with regular time in bed for at least 8 hours. 4. No driving if feeling any sleepiness. 5. Will maintain all necessary prescriptions for CPAP supplies, including mask, tube, filters. 6. Follow-up visit in one year, or earlier if patient has any problems. Thank you very much for allowing me to participate in the management of your patient. Sincerely, Marko Cardoza MD, PhD, FAASM Diplomat of [place] [employer] [place] [employer] Job Cost Estimator of [facility] MMODL / IJN: [id number] /
== END | disposition home or self-care (01) ==
LOC: SLEEP 16:15
PROVIDERS: ATTEND Internal Medicine
DX: G47.33 Obstructive sleep apnea (adult) (pediatric) (principal); E66.9 Obesity, unspecified; I10 Essential (primary) hypertension; K27.9 Peptic ulcer, site unspecified, unspecified as acute or chronic, without hemorrhage or perforation; Z99.89 Dependence on other enabling machines and devices; Z87.39 Personal history of other diseases of the musculoskeletal system and connective tissue; Z98.890 Other specified postprocedural states; Z79.899 Other long term (current) drug therapy

== ENCOUNTER 2024-03-27 03:58 | Observation (INO) | payer BC, MEDICARE ==
[2024-03-27] MEDS: SODIUM CHLORIDE 0.9% 1,000 ML IV STA (05:00)
[2024-03-27] MEDS: PIPERACILLIN-TAZOBACTAM 3.375 GM in SODIUM CHLORIDE 0.9% 100 ML IVPB STA (05:16)
--- NOTE | 2024-03-27 05:16 | ED ---
ENT HPI <Kelvin Moss - Last Filed: 03/27/24 07:34> - General Source: patient Mode of arrival: ambulatory Limitations: no limitations <Stephanie William - Last Filed: 04/03/24 08:30> - General Chief complaint: ENT Stated complaint: Jaw Pain Time Seen by Provider: 03/27/24 04:22 - History of Present Illness Initial comments: 68-year-old male presents emergency department reporting right-sided neck swelling. Patient states that his symptoms started yesterday. He has a sore throat with pain that radiates into his right neck. States that he can barely open his mouth. Yesterday for dinner he could only eat part of his hamburger due to this. He denies any dental pain. No fevers. He is able to swallow. Denies difficulty breathing. Patient is a diabetic. Denies chest pain. No other alleviating, precipitating or modifying factors (Stephanie William) - Related Data Home Medications Medication Instructions Recorded Confirmed Losartan/Hydrochlorothiazide 1 tab PO DAILY@1200 06/25/18 03/27/24 [Losartan-Hctz 100-25 mg Tab] Atorvastatin [Lipitor] 20 mg PO DAILY 03/27/24 03/27/24 Colchicine [Colcrys] 0.6 mg PO DAILY 03/27/24 03/27/24 Empagliflozin/Linagliptin 1 tab PO DAILY 03/27/24 03/27/24 [Glyxambi 25 mg-5 mg Tablet] Pantoprazole [Protonix] 40 mg PO DAILY 03/27/24 03/27/24 Pioglitazone [Actos] 30 mg PO DAILY 03/27/24 03/27/24 Previous Rx's Medication Instructions Recorded Amoxic-Pot Clav 875-125Mg 1 tab PO BID 10 Days #20 tab 03/28/24 [Augmentin 875-125] Allergies Allergy/AdvReac Type Severity Reaction Status Date / Time No Known Allergies Allergy Verified 03/27/24 07:49 Review of Systems ROS Other: All systems not noted in ROS Statement are negative. <Kelvin Moss - Last Filed: 03/27/24 07:34> ROS Other: All systems not noted in ROS Statement are negative. <Stephanie William - Last Filed: 04/03/24 08:30> ROS Statement: Those systems with pertinent positive or pertinent negative responses have been documented in the HPI. Past Medical History Past Medical History: Diabetes Mellitus, GERD/Reflux, Hypertension Additional Past Medical History / Comment(s): CLL diagnosed in 2009-being followed by Dr. Jeffery with blood work every 6 months, past bilateral ankle fractures-healed with casting. History of Any Multi-Drug Resistant Organisms: None Reported Past Surgical History: Appendectomy Additional Past Surgical History / Comment(s): Colonoscopy/normal. Past Anesthesia/Blood Transfusion Reactions: No Reported Reaction Past Psychological History: No Psychological Hx Reported Smoking Status: Never smoker Past Alcohol Use History: None Reported Past Drug Use History: None Reported - Past Family History Father Family Medical History: Diabetes Mellitus, Myocardial Infarction (SD) Additional Family Medical History / Comment(s): Father at the ageof 77yrs from SD/diabetes. Mother Family Medical History: No Reported History Additional Family Medical History / Comment(s): Mother is healthy and is 82 yrs old. <Stephanie William - Ronnie Filed: 04/03/24 08:30> General Exam Limitations: no limitations General appearance: alert, in no apparent distress Head exam: Present: atraumatic, normocephalic, normal inspection Eye exam: Present: normal appearance, PERRL, EOMI. Absent: scleral icterus, conjunctival injection, periorbital swelling ENT exam: Present: normal exam, mucous membranes moist Neck exam: Present: tenderness (To the right neck. Induration. Trismus). Absent: meningismus, lymphadenopathy Respiratory exam: Present: normal lung sounds bilaterally. Absent: respiratory distress, wheezes, rales, rhonchi, stridor Cardiovascular Exam: Present: regular rate, normal rhythm, normal heart sounds. Absent: systolic murmur, diastolic murmur, rubs, gallop, clicks GI/Abdominal exam: Present: soft, normal bowel sounds. Absent: distended, tenderness, guarding, rebound, rigid Extremities exam: Present: normal inspection, full ROM, normal capillary refill. Absent: tenderness, pedal edema, joint swelling, calf tenderness Back exam: Present: normal inspection Neurological exam: Present: alert, oriented X3, CN II-XII intact Psychiatric exam: Present: normal affect, normal mood Skin exam: Present: warm, dry, intact, normal color. Absent: rash <Stephanie William Filed: 04/03/24 08:30> Course Vital Signs 03/27/24 03/27/24 03/27/24 04:02 13:45 17:00 Temperature 98.4 F Pulse Rate 62 92 91 Pulse Rate [ Pulse Oximetery ] Respiratory 18 16 16 Rate Blood Pressure 143/83 131/97 146/83 Blood Pressure [Left Arm] O2 Sat by Pulse 95 97 97 Oximetry 03/27/24 18:18 Temperature 97.7 F Pulse Rate Pulse Rate [ 50 L Pulse Oximetery ] Respiratory 16 Rate Blood Pressure Blood Pressure 129/73 [Left Arm] O2 Sat by Pulse 93 L Oximetry Medical Decision Making - Lab Data Result diagrams: 03/27/24 04:53 03/27/24 04:53 <Kelvin Moss - Last Filed: 03/27/24 07:34> - Lab Data Result diagrams: 03/28/24 06:09 03/28/24 06:09 <Stephanie William - Last Filed: 04/03/24 08:30> - Medical Decision Making Patient admitted to Dr. Stoddard who is aware with right-sided submandibular sialoadenitis and trismus. Patient will be kept for antibiotics, steroids and fluids. ENT placed on consult. (Klevin Moss) Was pt. sent in by a medical professional or institution ([facility], [employer], urgent care, hospital, or residential...) When possible be specific @ -No Did you speak to anyone other than the patient for history (EMS, parent, family, police, friend...)? What history was obtained from this source @ -No Did you review nursing and triage notes (agree or disagree)? Why? @ -I reviewed and agree with nursing and triage notes Were old charts reviewed (outside hosp., previous admission, EMS record, old EKG, old radiological studies, urgent care reports/EKG's, residential records)? Report findings @ -No old charts were reviewed Differential Diagnosis (chest pain, altered mental status, abdominal pain women, abdominal pain men, vaginal bleeding, weakness, fever, dyspnea, syncope, headache, dizziness, GI bleed, back pain, seizure, CVA, palpatations, mental health, musculoskeletal)? @ -ludwigs, salivary gland swelling, dental abscess, strep EKG interpreted by me (3pts min.). @ -Not done X-rays interpreted by me (1pt min.). @ -None done CT interpreted by me (1pt min.). @ -CT was completed and in my interpretation demonstrates heterogeneous appearance to the right salivary glands U/S interpreted by me (1pt. min.). @ -None done What testing was considered but not performed or refused? (CT, X-rays, U/S, labs)? Why? @ -None What meds were considered but not given or refused? Why? @ -None Did you discuss the management of the patient with other professionals (professionals i.e. Dr., PA, [employer]ER, lab, RT, psych nurse, social science manager, digital marketing consultant, teacher, space operations officer, case management coordinator)? Give summary @ -I discussed the case with Dr. Moss who will take over care of the patient Was smoking cessation discussed for >3mins.? @ -No Was critical care preformed (if so, how long)? @ -No Were there social determinants of health that impacted care today? How? (Homelessness, low income, unemployed, alcoholism, drug addiction, transportation, low edu. Level, literacy, decrease access to med. care, nursing home, rehab)? @ -No Was there de-escalation of care discussed even if they declined (Discuss DNR or withdrawal of care, Hospice)? DNR status @ -No What co-morbidities impacted this encounter? (DM, HTN, Smoking, COPD, CAD, Cancer, CVA, ARF, Chemo, Hep., AIDS, mental health diagnosis, sleep apnea, morb id obesity)? @ -None Was patient admitted / discharged? Hospital course, mention meds given and rou te, prescriptions, significant lab abnormalities, going to OR and other pertinent info. @ -Upon arrival patient seen and evaluated in room 16. Thorough history and physical exam was performed. IV was established. Laboratory studies were conducted. CT was performed. I interpreted the CT as concerning for heterogeneous appearance of the salivary gland. Patient does have elevated white blood cell count. He is covered with a dose of antibiotics. Final CT read is pending at this time. Patient will be signed out to Dr. Moss for definitive management Undiagnosed new problem with uncertain prognosis? @ -No Drug Therapy requiring intensive monitoring for toxicity (Heparin, Nitro, Insu darryl, Cardizem)? @ -No Were any procedures done? @ -No Diagnosis/symptom? @ -Acute right jaw pain, acute sialoadenitis Acute, or Chronic, or Acute on Chronic? @ -Acute Uncomplicated (without systemic symptoms) or Complicated (systemic symptoms)? @ -Complicated Side effects of treatment? @ -No Exacerbation, Progression, or Severe Exacerbation? @ -No Poses a threat to life or bodily function? How? (Chest pain, USA, SD, pneumonia, PE, COPD, DKA, ARF, appy, cholecystitis, CVA, Diverticulitis, Homicidal, Suicidal, threat to staff... and all critical care pts) @ -No (Stephanie William) - Lab Data Lab Results 03/27/24 03/27/24 03/27/24 Range/Units 04:53 04:53 04:53 WBC 17.2 H (3.8-10.6) k/uL RBC 5.99 H (4.30-5.90) m/uL Hgb 17.9 H (13.0-17.5) gm/dL Hct 54.4 H (39.0-53.0) % MCV 90.9 (80.0-100.0) fL MCH 29.9 (25.0-35.0) pg MCHC 32.9 (31.0-37.0) g/dL RDW 13.6 (11.5-15.5) % Plt Count 154 (150-450) k/uL MPV 7.6 Neutrophils % 66 % Lymphocytes % 26 % Monocytes % 6 % Eosinophils % 0 % Basophils % 0 % Neutrophils # 11.4 H (1.3-7.7) k/uL Lymphocytes # 4.4 (1.0-4.8) k/uL Monocytes # 1.0 (0-1.0) k/uL Eosinophils # 0.1 (0-0.7) k/uL Basophils # 0.1 (0-0.2) k/uL Sodium 139 (137-145) mmol/L Potassium 3.6 (3.5-5.1) mmol/L Chloride 104 (98-107) mmol/L Carbon Dioxide 25 (22-30) mmol/L Anion Gap 10 mmol/L BUN 24 H (9-20) mg/dL Creatinine 0.98 (0.66-1.25) mg/dL Est GFR (CKD-EPI)AfAm >90 (>60 ml/min/1.73 sqM) Est GFR (CKD-EPI)NonAf 81 (>60 ml/min/1.73 sqM) Glucose 126 H (74-99) mg/dL Plasma Lactic Acid Satnam 1.1 (0.7-2.0) mmol/L Calcium 9.0 (8.4-10.2) mg/dL Total Bilirubin 3.0 H (0.2-1.3) mg/dL AST 23 (17-59) U/L ALT 25 (4-49) U/L Alkaline Phosphatase 92 (38-126) U/L C-Reactive Protein 5.6 H (<1.0) mg/dL Total Protein 7.3 (6.3-8.2) g/dL Albumin 4.2 (3.5-5.0) g/dL Disposition Is patient prescribed a controlled substance at d/c from ED?: No Time of Disposition: 07:36 <Kelvin Moss - Last Filed: 03/27/24 07:34> <Stephanie William - Last Filed: 04/03/24 08:30> Clinical Impression: Submandibular sialoadenitis Disposition: ADMITTED IP TO THIS HOSP Condition: Stable
[2024-03-27 05:23] LABS: ALT 25 U/L (4-49); AST 23 U/L (17-59); African American GFR (CKD) >90 (>60 ml/min/1.73 sqM); Albumin 4.2 g/dL (3.5-5.0); Alkaline Phosphatase 92 U/L (38-126); Anion Gap 10 mmol/L; Blood Urea Nitrogen 24 mg/dL (9-20); C Reactive Protein 5.6 mg/dL (<1.0); Carbon Dioxide 25 mmol/L (22-30); Chloride 104 mmol/L (98-107); Glucose 126 mg/dL (74-99); Non-African American GFR(CKD) 81 (>60 ml/min/1.73 sqM); Potassium 3.6 mmol/L (3.5-5.1); Sodium 139 mmol/L (137-145); Total Protein 7.3 g/dL (6.3-8.2)
[2024-03-27 05:31] LABS: Basophils # (A) 0.1 k/uL (0-0.2); Basophils % (A) 0 %; Eosinophils # (A) 0.1 k/uL (0-0.7); Eosinophils % (A) 0 %; HCT 54.4 % (39.0-53.0); HGB 17.9 gm/dL (13.0-17.5); Lymphocytes # (A) 4.4 k/uL (1.0-4.8); Lymphocytes % (A) 26 %; MCH 29.9 pg (25.0-35.0); MCHC 32.9 g/dL (31.0-37.0); MCV 90.9 fL (80.0-100.0); Mean Platelet Volume 7.6; Monocytes % (A) 6 %; Neutrophils # (A) 11.4 k/uL (1.3-7.7); Neutrophils % (A) 66 %; Platelet Count 154 k/uL (150-450); RBC 5.99 m/uL (4.30-5.90); RDW 13.6 % (11.5-15.5); WBC 17.2 k/uL (3.8-10.6)
[2024-03-27] MEDS: PIPERACILLIN-TAZOBACTAM 3.375 GM in SODIUM CHLORIDE 0.9% 100 ML IVPB SCH (06:13)
--- NOTE | 2024-03-27 07:15 | CT ---
EXAM: CT Neck With Intravenous Contrast CLINICAL HISTORY: right sided neck swelling, trismus TECHNIQUE: Axial computed tomography images of the neck with intravenous contrast. CTDI is 14.7 mGy and DLP is 562.3 mGy-cm. This CT exam was performed using one or more of the following dose reduction techniques: automated exposure control, adjustment of the mA and/or kV according to patient size, and/or use of iterative reconstruction technique. Coronal and sagittal reformatted images were created and reviewed. 291 images COMPARISON: No relevant prior studies available. FINDINGS: Oropharynx: Unremarkable. No significant tonsillar enlargement. No peritonsillar abscess. Hypopharynx: Unremarkable. Larynx: Unremarkable. Normal epiglottis. Trachea: Unremarkable. Retropharyngeal space: Unremarkable. Submandibular/parotid glands: Right submandibular gland is edematous, enlarged with heterogenous enhancement surrounded by inflammatory change and subcutaneous fat stranding, indicate sialadenitis. Small amount of fluid deep to the gland in the submandibular space, abutting submucosal space, best seen on series 201 image 56. No salivary duct dilatation or stone. Thyroid: Unremarkable. No enlarged or calcified nodules. Bones/joints: No acute findings. Soft tissues: Moderate soft tissue swelling of right neck/submandibular region. Vasculature: No acute findings. Lymph nodes: Unremarkable. No lymphadenopathy. Lung apices: Unremarkable as visualized. IMPRESSION: Right submandibular sialadenitis
[2024-03-27] MEDS ORDERED: ACETAMINOPHEN TAB 325 MG TAB PO PRN (07:32)
[2024-03-27] MEDS ORDERED: NALOXONE 0.4 MG/ML 1 ML VIAL IV PRN (07:32)
[2024-03-27] MEDS: DEXAMETHASONE SOD PHOSPHATE 10 MG/ML 1 ML VIAL IV STA (07:47)
[2024-03-27] MEDS: SODIUM CHLORIDE 0.9% 1,000 ML IV SCH ×2 (07:48→20:41)
[2024-03-27] MEDS ORDERED: DEXTROSE 50% SYRINGE 50 ML IVP PRN ×2 (12:21)
[2024-03-27] MEDS: DEXAMETHASONE SOD PHOSPHATE 4 MG/ML 1 ML VIAL IVP SCH (12:48)
[2024-03-27] MEDS: PANTOPRAZOLE 40 MG/10 ML VIAL IVP SCH (12:48)
[2024-03-27 12:53] LABS: Glucose,Whole Blood 102 mg/dL (70-110)
[2024-03-27] MEDS: INSULIN ASPART (NovoLOG) 100 UNIT/ML VIAL SQ SCH (13:02)
[2024-03-27] MEDS: ATORVASTATIN 20 MG TAB PO SCH (13:07)
--- NOTE | 2024-03-27 16:34 | P.HPIM ---
History of Present Illness H&P Date: 03/28/24 Chief Complaint: Right jaw pain, swelling This is a 68-year-old gentleman with past medical history significant for morbid obesity, obstructive sleep apnea-uses CPAP, diabetes mellitus, gastroesophageal reflux disease, hypertension, CLL-follows with Dr. Jeffery, and multiple other medical issues presented to the ER with complaints of right neck edema, sore throat, difficulty opening his mouth. Reports Sunday afternoon after eating barbecue chips, took an afternoon nap, woke up with sore throat, right sided neck edema,difficulty opening mouth with subsequent difficulty in eating .denies cough, congestion , fevers or chills..denies choking or aspirating .denies naus ea, vomiting or abdominal pain .denies injury, trauma of the affected site. Denies spasms.denies any gum or teeth issues, denies dental pain. Reports last time he was at the dentist was over 20 years. denies chest pain, palpitations or shortness of breath. Maintaining O2 sats in the high 90s on room air. Afebrile, WBC 17.2, lactic acid within normal limits, CRP elevated 5.6, calcitonin pending. T. bili 3. Electrolytes and renal function stable. Soft tissue neck CT reported oropharynx, hypopharynx, larynx, trachea, retropharyngeal space unremarkable ,right submandibular sialoadenitis, small amount of fluid deep in the gland in the submandibular space no salivary duct dilatation or stone, thyroid unremarkable, bones/joints no acute findings, soft tissues moderate soft tissue swelling of right neck/submandibular region, vascular no acute findings, lymph nodes unremarkable, no lymphadenopathy lung apices unremarkable. IV fluids, IV antibiotics of Zosyn and IV steroids initiated in the ER. ENT consult initiated. ENT increased IV fluids, adjusted IV steroids. Blood sugars remain controlled .this morning significant improvement in edema, denies sore throat or pain. Consuming clear liquid diet without difficulties. Review of Systems ROS Statement: Those systems with pertinent positive or pertinent negative responses have been documented in the HPI. ROS Other: All systems not noted in ROS Statement are negative. Past Medical History Past Medical History: Diabetes Mellitus, GERD/Reflux, Hypertension Additional Past Medical History / Comment(s): CLL diagnosed in 2009-being followed by Dr. Jeffery with blood work every 6 months, past bilateral ankle fractures-healed with casting. History of Any Multi-Drug Resistant Organisms: None Reported Past Surgical History: Appendectomy Additional Past Surgical History / Comment(s): Colonoscopy/normal. Past Anesthesia/Blood Transfusion Reactions: No Reported Reaction Past Psychological History: No Psychological Hx Reported Smoking Status: Never smoker Past Alcohol Use History: None Reported Past Drug Use History: None Reported - Past Family History Father Family Medical History: Diabetes Mellitus, Myocardial Infarction ([place]) Additional Family Medical History / Comment(s): Father at the ageof 77yrs from [place]/diabetes. Mother Family Medical History: No Reported History Additional Family Medical History / Comment(s): Mother is healthy and is 82 yrs old. Medications and Allergies Home Medications Medication Instructions Recorded Confirmed Type Losartan/Hydrochlorothiazide 1 tab PO DAILY@1200 06/25/18 03/27/24 History [Losartan-Hctz 100-25 mg Tab] Atorvastatin [Lipitor] 20 mg PO DAILY 03/27/24 03/27/24 History Colchicine [Colcrys] 0.6 mg PO DAILY 03/27/24 03/27/24 History Empagliflozin/Linagliptin 1 tab PO DAILY 03/27/24 03/27/24 History [Glyxambi 25 mg-5 mg Tablet] Pantoprazole [Protonix] 40 mg PO DAILY 03/27/24 03/27/24 History Pioglitazone [Actos] 30 mg PO DAILY 03/27/24 03/27/24 History Allergies Allergy/AdvReac Type Severity Reaction Status Date / Time No Known Allergies Allergy Verified 03/27/24 07:49 Physical Exam Vitals: Vital Signs Temp Pulse Resp BP Pulse Ox 03/27/24 13:45 92 16 131/97 97 03/27/24 04:02 98.4 F 62 18 143/83 95 Intake and Output 03/27/24 03/27/24 03/27/24 06:59 14:59 22:59 Other: Weight 104.326 kg PHYSICAL EXAM: VITAL SIGNS: [As above] GENERAL: Alert and oriented x 3, sitting up in bed, no acute distress HEENT: Normocephalic, conjunctivae normal. eyes normal. NECK: Supple, no JVD. Right neck nontender, trace edema, nonreddened, no induration , minimal trismus.no thyroid enlargement. No LNs CARDIOVASCULAR: S1, S2 regular. No murmur RESPIRATION: Unlabored, equal air entry,CTA, breath sounds diminished in the bases. No rhonchi or crackles. No bronchial breathing. ABDOMEN: Soft, nondistended, nontender . No guarding. no masses palpable. No ascites, No hepatosplenomegaly.Bowel sounds heard. LEGS: No edema. no swelling NERVOUS SYSTEM: Cranial N 2-12 grossly normal.No focal deficits. Strength and sensation grossly intact.. Skin: Warm and dry, no rash Results CBC & Chem 7: 03/28/24 06:09 03/28/24 06:09 Labs: Abnormal Lab Results - Last 24 Hours (Table) 03/27/24 03/27/24 Range/Units 04:53 04:53 WBC 17.2 H (3.8-10.6) k/uL RBC 5.99 H (4.30-5.90) m/uL Hgb 17.9 H (13.0-17.5) gm/dL Hct 54.4 H (39.0-53.0) % Neutrophils # 11.4 H (1.3-7.7) k/uL BUN 24 H (9-20) mg/dL Glucose 126 H (74-99) mg/dL Total Bilirubin 3.0 H (0.2-1.3) mg/dL C-Reactive Protein 5.6 H (<1.0) mg/dL Assessment and Plan Assessment: Submandibular sialoadenitis Diabetes mellitus Obstructive sleep apnea uses CPAP Morbid obesity, BMI 34 Gastroesophageal reflux disease Hypertension, History of CLL Plan: Continue on current medication regimen ,monitoring and symptomatic treatment. Maintain IV fluid hydration, steroids and antibiotics. Close monitoring of blood sugars. advance diet to full liquids. Increase ambulation as tolerated. Patient will be discharged home today in a stable condition with guarded prognosis pending ENT evaluation, recommendations and DC clearance. The impression and plan of care has been dictated as directed. : I performed a history and examination of this patient, discussed the same with the dictator. I agree with the dictator's note ,documented as a scribe. Any ad ditional findings or plans will be noted.
[2024-03-27 17:04] LABS: Glucose,Whole Blood 248 mg/dL (70-110)
[2024-03-27] MEDS ORDERED: TEMAZEPAM 15 MG CAP PO PRN (18:57)
[2024-03-27 20:39] LABS: Glucose,Whole Blood 189 mg/dL (70-110)
[2024-03-28] MEDS: DEXAMETHASONE SOD PHOSPHATE 10 MG/ML 1 ML VIAL IVP SCH (00:08)
[2024-03-28 06:23] LABS: Glucose,Whole Blood 130 mg/dL (70-110)
[2024-03-28] MEDS: LORATADINE 10 MG TAB PO SCH (09:55)
[2024-03-28 10:28] LABS: HCT 48.7 % (39.6-50.0); MCHC 32.9 g/dL (32.0-37.0); MCV 91.2 FL (80.0-97.0); NRBC Per 100 WBC 0 X 10*3/uL (0.00-0.01); Platelet Count 170 X 10*3/uL (140-440); RBC 5.34 X 10*6/uL (4.40-5.60); RDW 13.8 % (11.5-14.5); WBC 23.62 X 10*3/uL (4.50-10.00)
[2024-03-28 10:40] LABS: BUN/Creat Ratio 26.56 Ratio (12.00-20.00); Blood Urea Nitrogen 23.9 mg/dL (9.0-27.0); Glucose 139 mg/dL (70-110)
[2024-03-28 10:41] LABS: Calcium 9.2 mg/dL (8.7-10.3); Carbon Dioxide 21.3 mmol/L (21.6-31.8); Chloride 107 mmol/L (96-109); Potassium 4.1 mmol/L (3.5-5.5); Sodium 143 mmol/L (135-145)
[2024-03-28 11:48] LABS: Basophils # (M) 0 X 10*3/uL (0.00-0.10); Eosinophils # (M) 0 X 10*3/uL (0.04-0.35); Lymphocytes # (M) 1.18 X 10*3/uL (0.90-5.00); Monocytes # (M) 0.94 X 10*3/uL (0.20-1.00); Neutrophils # (M) 21.49 X 10*3/uL (1.80-7.70); Neutrophils % (M) 91 %; RBC Morphology Normal (Normal)
[2024-03-28 12:06] LABS: Glucose,Whole Blood 194 mg/dL (70-110)
[2024-03-28] MEDS: LOSARTAN-HCTZ 50-12.5 MG 1 EACH TAB PO SCH (13:07)
[2024-03-28] MEDS: DEXAMETHASONE SOD PHOSPHATE 10 MG/ML 1 ML VIAL IVP ONE (15:52)
[2024-03-28 16:57] VITALS: BP 131/82; PULSE 82; RESP 16; TEMP 98.4
--- NOTE | 2024-03-30 21:16 | CONS ---
CONSULTATION REASON FOR CONSULTATION: Right submandibular gland sialadenitis. HISTORY OF PRESENT ILLNESS: The patient is a pleasant 68-year-old male, who was admitted to [facility] via [facility] Room. The patient states that on Sunday prior to his admission he developed soreness in his throat and slight swelling in the right side of his neck. Over the next several days, the swelling and the pain progressed to the point that the patient had difficulty chewing and opening his mouth, but did not have difficulty swallowing. He subsequently presented at the [facility] Emergency Room. He was examined by the ER physician and a CT scan with contrast was performed of the neck. This showed evidence of a right sialadenitis with cellulitis and several small surrounding inflamed lymph nodes. There was no evidence of any abscess or phlegmon. The patient was subsequently admitted and was placed on maximum dose of Zosyn q.8 hours and also given Decadron. I was consulted about the patient on 03/27/2024 and saw the patient on 03/28/2024. At the time that I saw the patient, the patient stated he felt better. At the time that I was consulted, I initially had the nursing staff give the patient several doses of Decadron, Decadron IV 10 mg q.8 hours x2 doses, followed by Decadron IV 5 mg q.8 x2 doses. The patient at the time that I saw him was able to at least eat soft food stuff. His diet was advanced as tolerated. At the time of his admission, he was only able to handle liquids. He states that the pain has markedly decreased, and he is having very little difficulty opening and closing his mouth. The patient does not have a history of smoking. He is a known type 2 diabetic, but he states that his sugars are well controlled. He does not have a previous history of similar symptoms. ALLERGIES: Reveals that he has no known allergies to medications. HOME MEDICATIONS: Include, 1. Losartan. 2. Actos. 3. Protonix. 4. Lipitor. 5. Glyxambi. REVIEW OF SYSTEMS: CARDIOVASCULAR: Reveals that the cardiovascular system is positive for hypertension. METABOLIC/ENDOCRINE: Positive for type 2 diabetes mellitus and hypercholesterolemia. GASTROINTESTINAL: Positive for GERD. Remainder of the review of systems is essentially unremarkable. PHYSICAL EXAMINATION: GENERAL: This patient is a pleasant 68-year-old male, who is alert, cooperative, and is in no acute distress at this time. HEENT: Patient is normocephalic. Tympanic membranes are normal. Middle ear spaces are free of any fluid or infection. Pupils equal, round, and reactive to light and accommodation. Extraocular movements are within normal limits. Intranasal examination reveals moderate septal deviation with compensatory hypertrophy of inferior turbinates bilaterally. Examination of the oropharynx is unremarkable. Bimanual palpation of the floor of the mouth reveals that there is still firmness, mild to moderate tenderness and hypertrophy of the right submandibular gland. Palpation of the neck read does not reveal any significant surrounding lymphadenopathy. Examination of the orifices of Chaves's duck below the tongue does not reveal any purulent saliva coming from them, even with mild compression of the right submandibular gland. Remainder of the head and neck exam unremarkable. CHEST/CARDIOVASCULAR: Both lung dee are clear to percussion and auscultation. Patient is in regular sinus rhythm. S1, S2 are present without any murmurs, S3s, or S4s. Peripheral pulses are bilaterally symmetrical. ABDOMEN: There is no evidence any masses, megaly, or tenderness. The abdomen is soft. Remainder of physical exam is unremarkable. ASSESSMENT: Right submandibular gland sialadenitis without abscess formation. PLAN: From an ENT standpoint, this patient could be discharged to home on a 10-14 day course of Augmentin 875 p.o. b.i.d. He has been advised to suck on sugar free lemon drop candy to cause his salivary glands to secrete. I advised the patient that the most common cause of this problem in healthy adult is dehydration. Dehydration causes the glands not to continuously secrete saliva, which will allow bacteria to enter the glands in a retrograde fashion. He was advised that he should drink a minimum of 2 L or more of water on a daily basis. I also advised him that the 2 L of water does not include food stuff such as coffee, tea, milk, juice, etc. I will sign off on this patient at this time, and I do not need to see him in my office for followup. I have advised him to follow up with his primary care physician once he is discharged from the . I want to take this opportunity to thank you for allowing me to assist in the care of your patient. If I can be of any further assistance, please feel free to call my office. MMODL / IJN: [id number] / SOPHY
== END 2024-03-28 17:30 | disposition home or self-care (01) ==
LOC: EC 03:58 → 6NMEDSUR 07:33
PROVIDERS: ADMIT Family Medicine; ATTEND Family Medicine
DX: K11.20 Sialoadenitis, unspecified (principal); E11.9 Type 2 diabetes mellitus without complications; E78.00 Pure hypercholesterolemia, unspecified; K21.9 Gastro-esophageal reflux disease without esophagitis; I10 Essential (primary) hypertension; G47.33 Obstructive sleep apnea (adult) (pediatric); E66.01 Morbid (severe) obesity due to excess calories; Z68.34 Body mass index [BMI] 34.0-34.9, adult; Z85.6 Personal history of leukemia; Z79.899 Other long term (current) drug therapy
CPT/HCPCS: 96376 ×2; 96366 ×3; 96361; 96365; 96375; 99284; 36415; 80053; 80048; 83605; 85025 ×2; 86140; 87040; 83036; 84145; 70491; G0378 ×2; J2543 ×2; J1100 ×3; C9113 ×2; Q9967